=== PATIENT | male | born 1965 | race African-American/Black ===

== ENCOUNTER → 2021-06-15 | Day surgery (SDC) | payer OTHER ==
[~2021-06-15] VITALS: Ht 172.7 cm; Wt 133.8 kg
[~2021-06-15] MED LIST: AZITHROMYCIN250 MG PO; CEFDINIR300 MG PO; NORCO 5-325 TA1 EACH PO
== END | disposition home or self-care (01) ==
LOC: FAS 11:22
DX: Z12.11 Encounter for screening for malignant neoplasm of colon (principal); K64.4 Residual hemorrhoidal skin tags
CPT/HCPCS: J2250; J7120